=== PATIENT | female | born 1960 | race Caucasian/White ===

== ENCOUNTER 2019-01-25 18:40 | Emergency (ER) | payer OTHER, MEDICARE ==
[~2019-01-25] VITALS: Ht 170.2 cm; Wt 104.3 kg
[~2019-01-25 18:40] MED LIST: AUGMENTIN 875-1 EACH PO; LOSARTAN POTASS25 MG PO; METRONIDAZOLE500 MG PO; NITROFURANTOIN100 MG PO; ORENCIA125 MG/1 M SQ; VITAMIN D1000 UNI1 PO
--- OUTSIDE RECORDS SUMMARY | 2019-01-25 18:43 | XMS REPORT | Clinical Summary ---
Author Author [facility] Organization [facility] Address Unknown Phone Unavailable Care Team Providers Care Medical Scientific Officer Name Role Phone Zahra Sullivan MD PCP Allergies Comments Active Allergy Reactions Severity Noted Date Acetaminophen Shortness Of High 07/12/2016 Breath Moxifloxacin Shortness Of High 07/12/2016 Breath PER PT SHORTNESS OF BREATH WELL Penicillins Hives High 07/12/2016 Medications End Date Status Medication Sig Dispensed Refills Start Date Active abatacept (ORENCIA) 125 Inject under 0 mg/mL injection the skin. Active amoxicillin-pot TK 1 T PO BID 0 clavulanate (AUGMENTIN) 9 875-125 mg per tablet Active metroNIDAZOLE (FLAGYL) TK 1 T PO TID 0 500 MG tablet 9 05/28/2018 Discontinued predniSONE (DELTASONE) 5 1 mg tablet 7 05/28/2018 Discontinued buPROPion XL (WELLBUTRIN TK 1 T PO D 1 XL) 150 MG 24 hr tablet 7 05/28/2018 Discontinued celecoxib (CeleBREX) 100 TK 2 C PO IN 0 MG capsule THE MORNING 6 AND 1 C PO IN THE EVENING AFTER 1 WEEK INCREASE TO 2 C PO BID PRN 05/28/2018 Discontinued leflunomide (ARAVA) 10 MG 0 tablet 7 05/28/2018 Discontinued CIMZIA 400 mg/2 mL (200 0 07/11/ mg/mL x 2) syringe kit 7 05/28/2018 CLENPIQ 10 mg-3.5 gram Take 1 kit by 320 mL 0 -12 gram/160 mL solution mouth once 9 for 1 dose. As per box Active Problems Problem Noted Date Colitis Colon cancer screening Encounters Care Team Description Date Type Specialty Starr, Aubrey Lyone, MD 06/07/2018 Lab Lab Isabel Fontaine 06/05/2018 Telephone Gastroenterology Aubrey Clements MD Colon cancer screening (Primary Dx); Colitis 05/28/2018 Office Visit Gastroenterology Andrey Rodrigues MD 03/29/2018 Emergency Emergency Medicine Alanna Walls MD Other psoriasis; Other psoriatic arthropathy (HCC) 02/28/2018 Hospital Radiology Encounter Alanna Walls MD Other psoriasis (Primary Dx); Other psoriatic arthropathy (HCC) 02/28/2018 Transcribe Access Orders after 01/24/2018 Family History Medical History Relation Name Comments Pancreatic cancer Mother Relation Name Status Comments Father Mother Social History Date Tobacco Use Types Packs/Day Years Used Current Every Day Smoker 1 Smokeless Tobacco: Never Used Drinks/Week oz/Week Comments Alcohol Use Seldom Yes Sex Assigned at Date Recorded Not on file Industry Job Start Date Occupation Not on file Not on file Not on file Travel End Travel History Travel Start No recent travel history available. Last Filed Vital Signs Reading Time Taken Comments Vital Sign 149/84 05/28/2018 1:28 PM [employer] Blood Pressure 74 05/28/2018 1:28 PM [employer] Pulse 36.7 C (98 F) 05/28/2018 1:28 PM [employer] Temperature 16 03/29/2018 9:02 PM [employer] Respiratory Rate 98% 03/29/2018 9:02 PM [employer]EC[employer]IVE Oxygen Saturation - - Inhaled Oxygen Concentration 113 kg (250 lb) 05/28/2018 1:28 PM [employer]EC[employer]IVE Weight 170.2 cm (5' 7") 03/29/2018 8:16 PM [employer] EXECUTIVE Height 39.16 03/29/2018 8:16 PM [employer] EXECUTIVE Body Mass Index Plan of Treatment Health Maintenance Due Date Last Done Comments CERVICAL CANCER SCREENING 1983 BREAST CANCER SCREENING 01/12/2012 SHINGLES VACCINES (#1) 01/12/2012 INFLUENZA VACCINE 12/20/2018 COLONOSCOPY SCREENING 06/07/2021 06/07/2018 Procedures Comments Procedure Name Priority Date/Time Associated Diagnosis SURGICAL PATHOLOGY Routine 06/07/2018 REQUEST 12:03 PM [employer]IONAL [employer] EXECUTIVE XR HANDS 3 VW BILATERAL Routine 02/28/2018 Other psoriasis 11:10 AM CDT Other psoriatic arthropathy (HCC) after 01/24/2018 Results * Surgical pathology request (06/07/2018 12:03 PM [employer]IONAL ACCOUNT EXECUTIVE) [facility] DEPARTMENT OF PATHOLOGY AND GENOMIC MEDICINE Surgical See link below for PDF Lab [facility] DEPARTMENT pathology Report OF PATHOLOGY report AND GENOMIC MEDICINE Result status This is Final Report for [facility] DEPARTMENT [id number] OF PATHOLOGY AND GENOMIC MEDICINE Specimen Performing Organization Address City[facility] Phone Number [facility] DEPARTMENT OF [address] [place] [address] PATHOLOGY AND GENOMIC MEDICINE * XR Hands 3 Vw Bilateral (02/28/2018 11:10 AM CDT) Specimen Narrative Performed At EXAMINATION:XR HANDS 3 VW BILATERAL [facility] CLINICAL HISTORY:L40.8 Other psoriasis, L40.59 Other psoriatic arthropathy, L40.8 COMPARISON:None. IMPRESSION: All joint spaces are well-maintained. There is no fracture or dislocation. Mineralization is normal. There are no erosions. No foreign bodies or soft tissue abnormalities are detected. [facility]-[id number] Procedure Note Hm Interface, Radiology Results Incoming - 02/28/2018 12:18 PM CDT EXAMINATION: XR HANDS 3 VW BILATERAL CLINICAL HISTORY: L40.8 Other psoriasis, L40.59 Other psoriatic arthropathy, L40.8 COMPARISON: None. IMPRESSION: All joint spaces are well-maintained. There is no fracture or dislocation. Mineralization is normal. There are no erosions. No foreign bodies or soft tissue abnormalities are detected. [facility]-[id number] Performing Organization Address City[facility] Phone Number [facility] [address] [place] [address] after 01/24/2018 Insurance Type Payer Benefit Subscriber ID Effective Phone Address Plan / Dates Group HMO/PPO [facility] xxxxxxxxx 2016-P THCARE resent CHOICE/CHO ICE + Medicare MEDICARE MEDICARE xxxxxxxxxx 2016- [place]AN[place], PART A AND Present [place] Advance Directives For more information, please contact: [phone] Patient Manager Mechanical Explanation Type Date Recorded Advance Directives, Living Will and 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
--- OUTSIDE RECORDS SUMMARY | 2019-01-25 18:44 | XMS REPORT ---
Author Author Sandoval Campbell Organization [employer] Address Unknown Phone Unavailable Care Team Providers Care Hoist Cylinder Loader Name Role Phone Sandoval Campbell Unavailable Allergies, Adverse Reactions, Alerts Substance Reaction Event Type Vimovo Info Not Available Drug Allergy Rocephin Info Not Available Drug Allergy Avelox Info Not Available Drug Allergy Acetaminophen Info Not Available Drug Allergy Problems Problem Type Condition Code Onset Dates Condition Status Assessment Encounter for screening mammogram for malignant neoplasm of breast Z12.31 Active Assessment Encounter for screening for malignant neoplasm of colon Z12.11 Active Assessment Encounter for general adult medical examination with abnormal findings Z00.01 Active Assessment Essential (primary) hypertension I10 Active Problem Pain in unspecified joint M25.50 Active Problem Encounter for screening mammogram for malignant neoplasm of breast Z12.31 Active Problem Low back pain M54.5 Active Problem Encounter for screening for malignant neoplasm of colon Z12.11 Active Problem Essential (primary) hypertension I10 Active Problem Encounter for general adult medical examination with abnormal findings Z00.01 Active Problem Pain in left ankle and joints of left foot M25.572 Active Problem Sciatica, left side M54.32 Active Problem Effusion, right ankle M25.471 Active Problem Morbid (severe) obesity due to excess calories E66.01 Active Problem Hallux rigidus, left foot M20.22 Active Problem Rheumatoid arthritis, unspecified M06.9 Active Problem Pain in right toe(s) M79.674 Active Problem Pain in left toe(s) M79.675 Active Problem Other hammer toe(s) (acquired), right foot M20.41 Active Problem Other hammer toe(s) (acquired), left foot M20.42 Active Problem Shortness of breath R06.02 Active Problem Heart failure, unspecified I50.9 Active Problem Psoriasis, unspecified L40.9 Active Problem Arthropathic psoriasis, 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 Problem Xerosis cutis L85.3 Active Problem Rash and other nonspecific skin eruption R21 Active Problem Essential (primary) hypertension I10 Active Problem 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 Active Medications Medication Code System Code Instructions Start Date End Date Status Dosage Triamcinolone Acetonide [facility] 58667193630 0.5 % Externally Twice a day December 16, 2016 Active 1 application to affected area Remicade [facility] [id number] 100 mg Intravenous q 6 weeks Active 5mg/kg Lisinopril [facility] [id number] 10 MG Orally as directed Active 2 tabs in am and 1 tab in pmtablet Vitamin D [facility] [id number] 2000 UNIT Orally Once a day Active 1 tablet Vital Signs Date/Time: Mar 06, 2017 BMI 43.22 Index Weight 276 lbs Blood Pressure Systolic 140 mm Hg Respiratory Rate 16 /min Cardiac Monitoring Heart Rate 72 /min Temperature 98.0 F Blood Pressure Diastolic 80 mm Hg Results No Known Results Summary Purpose [employer] Submission
--- OUTSIDE RECORDS SUMMARY | 2019-01-25 18:44 | XMS REPORT | Continuity of Care Document ---
Author Author [employer] Organization [employer] Address Unknown Phone Unavailable Care Team Providers Care Pediatric Occupational Therapist Name Role Phone [employer] Unavailable Unavailable Problems Problem Status Onset Date Classification Date Reported Comments Source Heart failure, unspecified Active Problem 12/11/2018 [facility] Varicose veins of bilateral lower extremities with other complications Active Problem 12/11/2018 [facility] Essential (primary) hypertension Active Diagnosis 12/11/2018 [facility] Encounter for general adult medical examination with abnormal findings Active Diagnosis 12/11/2018 [facility] Encounter for screening for malignant neoplasm of colon Active Diagnosis 12/11/2018 [facility] Rash and other nonspecific skin eruption Active Problem 12/11/2018 [facility] Xerosis cutis Active Problem 12/11/2018 [facility] Encounter for screening mammogram for malignant neoplasm of breast Active Diagnosis 12/11/2018 [facility] Pain in unspecified joint Active Problem 12/11/2018 [facility] Rheumatoid arthritis, unspecified Active Problem 12/11/2018 [facility] Effusion, right ankle Active Problem 12/11/2018 [facility] Psoriasis, unspecified Active Problem 12/11/2018 [facility] Morbid (severe) obesity due to excess calories Active Problem 12/11/2018 [facility] Arthropathic psoriasis, unspecified Active Problem 12/11/2018 [facility] Low back pain Active Problem 12/11/2018 [facility] Shortness of breath Active Problem 12/11/2018 [facility] Other hammer toe(s) (acquired), right foot Active Problem 12/11/2018 [facility] Other hammer toe(s) (acquired), left foot Active Problem 12/11/2018 [facility] Sciatica, left side Active Problem 12/11/2018 [facility] Pain in right toe(s) Active Problem 12/11/2018 [facility] Pain in left toe(s) Active Problem 12/11/2018 [facility] Pain in left ankle and joints of left foot Active Problem 12/11/2018 [facility] Hallux rigidus, left foot Active Problem 12/11/2018 [facility] Medications Medication Details Route Status Patient Instructions Ordering Provider Order Date Source Cholecalciferol (Vitamin D3) (Vitamin D) 1,000 Unit Tablet, 1000 Unit Oral Daily Active 05/20/2018 [facility] Nitrofurantoin Macrocrystal (Nitrofurantoin) 100 Mg Capsule, 1 Tab Oral Twice A Day Active 05/20/2018 [facility] Remicade 5mg/kg Intravenous Active 100 mg Intravenous q 6 weeks [facility] 07/26/2017 [facility] Tramadol one tab orally Active 50 mg orally every 4-6 hours prn pain [facility] 07/26/2017 [facility] Losartan Potassium 1 tablet Orally Active 25 MG Orally Once a day [facility] 07/03/2017 [facility] Diflucan 1 tablet Orally Active 150 MG Orally daily [facility] 06/15/2017 [facility] Keflex 1 capsule Orally Active 500 MG Orally every 12 hrs [facility] 04/28/2017 [facility] Orencia as directed Intravenous Active 250 MG Intravenous [facility] 03/14/2017 [facility] Remicade 5mg/kg Intravenous Active 100 mg Intravenous q 6 weeks [facility] 03/14/2017 [facility] Remicade 5 mg/kg Intravenous Active 100 mg Intravenous q 6 weeks [facility] 02/17/2017 [facility] Hydrocortisone 1 application to affected area Externally Active 2.5 % Externally Twice a day [facility] 12/30/2016 [facility] Levaquin 1 tablet Orally Active 500 MG Orally Once a day [facility] 12/23/2016 [facility] Triamcinolone Acetonide 1 application to affected area Externally Active 0.5 % Externally Twice a day [facility] 12/16/2016 [facility] Lisinopril 2 tabs in am and 1 tab in pmtablet Orally Active 10 MG Orally as directed [facility] Above the knee Compression Stockings as directed NA Active 20- 30mmHg [place] [facility] Vitamin D 1 tablet Orally Active 2000 UNIT Orally Once a day [facility] Remicade 5mg/kg Intravenous Active 100 mg Intravenous q 6 weeks [facility] Triamcinolone Acetonide 1 application to affected area Externally Active 0.5 % Externally Twice a day [facility] Orencia as directed Intravenous Active 250 MG Intravenous [facility] Vitamin D 1 capsule Orally Active [address]46 UNIT Orally weekly [facility] Abatacept (Orencia) 125 Mg/1 Ml Disp.syrin Use As Directed Active [facility] Amoxicillin/Potassium Clav (Augmentin 875-125 Tablet) 1 Each Tablet Twice A Day Active [facility] Losartan Potassium 25 Mg Tablet Daily Active [facility] Metronidazole 500 Mg Tablet Three Times A Day Active [facility] Allergies, Adverse Reactions, Alerts Substance Category Reaction Severity Reaction type Status Date Reported Comments Source AVALOX Intermediate Allergy to Substance Active 03/17/2016 [facility] VIVALOL Intermediate Allergy to Substance Active 03/17/2016 [facility] Vimovo Adverse Reaction Info Not Available Adverse Reaction Active 03/06/2017 [facility] Rocephin Adverse Reaction Info Not Available Adverse Reaction Active 03/06/2017 [facility] Avelox Adverse Reaction Info Not Available Adverse Reaction Active 03/06/2017 [facility] Acetaminophen Adverse Reaction Info Not Available Adverse Reaction Active 03/06/2017 [facility] Remicade Adverse Reaction Info Not Available Adverse Reaction Active 03/13/2017 [facility] Cephalosporin Adverse Reaction Info Not Available Adverse Reaction Active 03/27/2017 [facility] Cephalosporins Unknown Allergy to Substance Active 05/20/2018 [facility] Prednisone Unknown Propensity to adverse reactions Active 05/20/2018 [facility] Naproxen Unknown Allergy to Substance Active 05/20/2018 [facility] Ceftriaxone Unknown Allergy to Substance Active 05/20/2018 [facility] Moxifloxacin Unknown Allergy to Substance Active 05/20/2018 [facility] Esomeprazole Unknown Allergy to Substance Active 05/20/2018 [facility] Immunizations No Data Provided for This Section Results Order Name Results Value Reference Range Date Interpretation Comments Source Blood leukocytes automated count (number/volume) 9.80 4.8 - 10.8 05/22/2018 [facility] Blood erythrocytes automated count (number/volume) 3.84 3.6 - 5.1 05/22/2018 [facility] Blood hemoglobin measurement (moles/volume) 12.6 12.0 - 16.0 05/22/2018 [facility] Automated blood hematocrit (volume fraction) 37.6 34.2 - 44.1 05/22/2018 [facility] Automated erythrocyte mean corpuscular volume 97.9 81 - 99 05/22/2018 [facility] Automated erythrocyte mean corpuscular hemoglobin (mass per erythrocyte) 32.8 28 - 32 05/22/2018 [facility] Automated erythrocyte mean corpuscular hemoglobin concentration measurement (mass/volume) 33.5 31 - 35 05/22/2018 [facility] RDW BldCo-Rto 14.1 11.7 - 14.4 05/22/2018 [facility] Automated blood platelet count (count/volume) 272 140 - 360 05/22/2018 [facility] Automated blood segmented neutrophil count as percentage of total leukocytes 65.7 38.7 - 80.0 05/22/2018 [facility] Automated blood lymphocyte count as percentage ot total leukocytes 21.1 18.0 - 39.1 05/22/2018 [facility] Automated blood monocyte count as percentage of total leukocytes 10.5 4.4 - 11.3 05/22/2018 [facility] Automated blood eosinophil count as percentage of total leukocytes 2.0 0.0 - 6.0 05/22/2018 [facility] Automated blood basophil count as percentage of total leukocytes 0.4 0.0 - 1.0 05/22/2018 [facility] IM GRANULOCYTES % 0.3 0.0 - 1.0 05/22/2018 [facility] Automated blood neutrophil count 6.4 2.1 - 6.9 05/22/2018 [facility] Blood lymphocytes count (number/volume) 2.1 1.0 - 3.2 05/22/2018 [facility] Blood monocytes automated count (number/volume) 1.0 0.2 - 0.8 05/22/2018 [facility] Automated blood eosinophil count 0.2 0.0 - 0.4 05/22/2018 [facility] Automated blood basophil count (count/volume) 0.0 0.0 - 0.1 05/22/2018 [facility] Absolute Immature Granulocyte (auto 0.03 0 - 0.1 05/22/2018 [facility] Serum or plasma sodium measurement (moles/volume) 139 136 - 145 05/22/2018 [facility] Serum or plasma potassium measurement (moles/volume) 4.1 3.5 - 5.1 05/22/2018 [facility] Serum or plasma chloride measurement (moles/volume) 109 98 - 107 05/22/2018 [facility] Serum or plasma carbon dioxide, total measurement (moles/volume) 23 22 - 29 05/22/2018 [facility] Serum or plasma anion gap 11.1 8 - 16 05/22/2018 [facility] Serum or plasma urea nitrogen measurement (mass/volume) 7 7 - 26 05/22/2018 [facility] Serum or plasma creatinine measurement (mass/volume) 0.64 0.57 - 1.11 05/22/2018 [facility] Serum or plasma urea nitrogen/creatinine mass ratio 11 6 - 25 05/22/2018 [facility] Estimated glomerular filtration rate (GFR) determination > 60 60 05/22/2018 [facility] Glucose measurement 102 74 - 118 05/22/2018 [facility] Serum or plasma calcium measurement (mass/volume) 8.5 8.4 - 10.2 05/22/2018 [facility] Serum or plasma magnesium measurement (mass/volume) 1.8 1.3 - 2.1 05/22/2018 [facility] Stool gastrointestinal hemoglobin detection NEGATIVE NEGATIVE 05/21/2018 [facility] Clostridium difficile A and B toxin assay NEGATIVE NEGATIVE 05/21/2018 [facility] Pathology Reports No Data Provided for This Section Diagnostic Reports No Data Provided for This Section Consultation Notes No Data Provided for This Section Discharge Summaries No Data Provided for This Section History and Physicals No Data Provided for This Section Vital Signs Vital Sign Value Date Comments Source Weight 274 07/26/2017 [facility] Systolic (mm Hg) 161 07/26/2017 [facility] Respitory Rate 16 07/26/2017 [facility] Heart Rate 75 07/26/2017 [facility] Temperature Oral (F) 98.0 F 07/26/2017 [facility] Diastolic (mm Hg) 92 07/26/2017 [facility] Weight 274 03/27/2017 [facility] Systolic (mm Hg) 175 03/27/2017 [facility] Respitory Rate 16 03/27/2017 [facility] Heart Rate 81 03/27/2017 [facility] Temperature Oral (F) 97.6 F 03/27/2017 [facility] Diastolic (mm Hg) 104 03/27/2017 [facility] Weight 274 03/14/2017 [facility] Systolic (mm Hg) 144 03/14/2017 [facility] Respitory Rate 16 03/14/2017 [facility] Heart Rate 78 03/14/2017 [facility] Temperature Oral (F) 96.7 F 03/14/2017 [facility] Diastolic (mm Hg) 80 03/14/2017 [facility] Weight 274 03/13/2017 [facility] Systolic (mm Hg) 134 03/13/2017 [facility] Respitory Rate 16 03/13/2017 [facility] Heart Rate 79 03/13/2017 [facility] Temperature Oral (F) 96.7 F 03/13/2017 [facility] Diastolic (mm Hg) 80 03/13/2017 [facility] Weight 276 03/06/2017 [facility] Systolic (mm Hg) 140 03/06/2017 [facility] Respitory Rate 16 03/06/2017 [facility] Heart Rate 72 03/06/2017 [facility] Temperature Oral (F) 98.0 F 03/06/2017 [facility] Diastolic (mm Hg) 80 03/06/2017 [facility] Weight 280 02/10/2017 [facility] Systolic (mm Hg) 146 02/10/2017 [facility] Respitory Rate 16 02/10/2017 [facility] Heart Rate 93 02/10/2017 [facility] Temperature Oral (F) 97.1 F 02/10/2017 [facility] Diastolic (mm Hg) 90 02/10/2017 [facility] Weight 276 02/02/2017 [facility] Systolic (mm Hg) 145 02/02/2017 [facility] Respitory Rate 0 02/02/2017 [facility] Heart Rate 82 02/02/2017 [facility] Temperature Oral (F) 0 F 02/02/2017 [facility] Diastolic (mm Hg) 85 02/02/2017 [facility] Encounters Location Location Details Encounter Type Encounter Number Reason For Visit Attending Provider ADM Date DC Date Status Source Discharged Inpatient [id number] ANISHA DUGAN MD 05/21/2018 05/22/2018 [facility] Procedures No Data Provided for This Section Assessment and Plan No Data Provided for This Section Plan of Care Plan of Care Date Source Discharge Date 05/22/18 1:58pm Disposition HOME, SELF-CARE Instructions/Education Provided Dehydration - Adult Prescriptions See Medication Section Additional Instructions/Education Follow up with PCP, DR. NABEEL OLEARY, IN ONE Week 05/22/2018 [facility] Social History Social History Date Source Smoking Status Start Date Stop Date Never Smoker 05/22/2018 [facility] Family History No Data Provided for This Section Advance Directives Order Name Results Value Date Source Advance Directives Advance Directives Directive Response Recorded Date/Time Does the patient have an advance directive? No 05/20/18 8:25pm If yes, is advance directive on file with [facility]? No 05/20/18 8:25pm If not on file with [facility] will patient provide a copy? No 05/20/18 8:25pm Do you have a Directive to Physician? No 05/20/18 6:05pm Do you have a Medical Power of Chocolate Maker? No 05/20/18 6:05pm Do you have an out of hospital Do Not Resuscitate Order? No 05/20/18 6:05pm Do you have any special needs we should be aware of? No 05/20/18 6:05pm Do you have a support person here with you today? Yes 05/20/18 6:05pm Did patient receive Notice of Privacy Practices? Yes 05/20/18 6:05pm Did patient receive patient rights and responsibilities? Yes 05/20/18 6:05pm 05/22/2018 [facility] Functional Status No Data Provided for This Section
--- OUTSIDE RECORDS SUMMARY | 2019-01-25 18:44 | XMS REPORT ---
Author Author Pat Farr [employer] Address Unknown Phone Unavailable Care Team Providers Care Foreman/Project Manager Name Role Phone Pat Farr CP Unavailable Allergies, Adverse Reactions, Alerts Substance Reaction Event Type Vimovo Info Not Available Drug Allergy Rocephin Info Not Available Drug Allergy Avelox Info Not Available Drug Allergy Acetaminophen Info Not Available Drug Allergy Problems Problem Type Condition Code Onset Dates Condition Status Assessment Low back pain M54.5 Active Assessment Morbid (severe) obesity due to excess calories E66.01 Active Assessment Effusion, right ankle M25.471 Active Assessment Rheumatoid arthritis, unspecified M06.9 Active Assessment Psoriasis, unspecified L40.9 Active Assessment Pain in unspecified joint M25.50 Active Assessment Arthropathic psoriasis, 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 Problem Pain in unspecified joint M25.50 [...] Date End Date Status Dosage Triamcinolone Acetonide [facility] 79726562470 0.5 % Externally Twice a day Active 1 application to affected area Vitamin D [facility] 76744561891 2000 UNIT Orally Once a day Active 1 tablet Vitamin D [facility] 77600960155 74451 UNIT Orally weekly Active 1 capsule Remicade [facility] 94263522457 100 mg Intravenous q 6 weeks July 26, 2017 Inactive 5mg/kg Lisinopril [facility] 39466823191 10 MG Orally bid prn Active 1 tablet Losartan Potassium [facility] 93917015158 25 MG Orally Once a day Jul 03, 2017 Active 1 tablet Orencia [facility] 53987696806 250 MG Intravenous Active as directed Tramadol [facility] 47598374917 50 mg orally every 4-6 hours prn pain July 26, 2017 Active one tab Vital Signs Date/Time: July 26, 2017 BMI 42.91 Index Weight 274 lbs Blood Pressure Systolic 161 mm Hg Respiratory Rate 16 /min Cardiac Monitoring Heart Rate 75 /min Temperature 98.0 F Blood Pressure Diastolic 92 mm Hg Results No Known Results Summary Purpose [employer] Submission
[2019-01-25] MEDS ORDERED: ONDANSETRON HCL 4 MG ORAL DISINTEGRATING TAB PO ONE ×2 (19:00→20:30)
[2019-01-25] MEDS ORDERED: TRAMADOL HCL 50 MG TAB PO ONE (19:00)
[2019-01-25] MEDS ORDERED: DIAZEPAM 5 MG TAB PO ONE (19:00)
[2019-01-25] MEDS ORDERED: ONDANSETRON HCL 4 MG ORAL DISINTEGRATING TAB ONE ×2 (19:10→20:23)
[2019-01-25] MEDS ORDERED: TRAMADOL HCL 50 MG TAB ONE (19:11)
[2019-01-25] MEDS ORDERED: DIAZEPAM INJ 5 MG/ML 2 ML IM ONE ×2 (19:15→20:30)
--- NOTE | 2019-01-25 20:17 | Diagnostic Imaging Report ---
EXAMINATION: CT of the abdomen and pelvis without contrast. TECHNIQUE: Helical CT images of the abdomen and pelvis were performed from the lung bases to the lesser trochanters. No intravenous contrast was given per renal stone protocol. Coronal and sagittal reformatted images were obtained.Dose modulation, iterative reconstruction, and/or weight based adjustment of the mA/kV was utilized to reduce the radiation dose to as low as reasonably achievable. COMPARISON: None. CLINICAL HISTORY:Left-sided flank pain DISCUSSION: ABSENCE OF INTRAVENOUS CONTRAST DECREASES SENSITIVITY FOR DETECTION OF FOCAL LESIONS AND VASCULAR PATHOLOGY. ABDOMEN/PELVIS: LOWER THORAX: Unremarkable. HEPATOBILIARY:No focal hepatic lesions. No biliary ductal dilation. Cholecystectomy. SPLEEN: No splenomegaly. PANCREAS: No focal masses or ductal dilatation. ADRENALS: No adrenal nodules. KIDNEYS/URETERS: No hydronephrosis, stones, or solid mass lesions. PELVIC ORGANS/BLADDER: Bladder is decompressed. Hysterectomy. PERITONEUM/RETROPERITONEUM: No free air or fluid. LYMPH NODES: No intra-abdominal,retroperitoneal, pelvic or inguinal lymphadenopathy. VESSELS: Limited evaluation. GI TRACT: No obstruction. Prior bariatric surgery. Scattered diverticulosis. BONES AND SOFT TISSUES: No bony destructive lesions. No soft tissue abnormalities. IMPRESSION: No acute CT finding. No renal calculi. Signed by: Dr. Melvin Bowie M.D. on 01/25/2019 8:14 PM
[2019-01-25] MEDS ORDERED: PROMETHAZINE HCL 25 MG TAB ONE (20:23)
[2019-01-25] MEDS ORDERED: PROMETHAZINE HCL 25 MG TAB PO ONE (22:00)
== END 2019-01-25 20:33 | disposition home or self-care (01) ==
LOC: FSED 18:40
DX: M54.5 Low back pain (principal); M54.6 Pain in thoracic spine; R10.11 Right upper quadrant pain; R10.12 Left upper quadrant pain; R11.0 Nausea; I10 Essential (primary) hypertension; L40.50 Arthropathic psoriasis, unspecified; Z98.84 Bariatric surgery status
CPT/HCPCS: 74176; 81003; 99283; J3360; Q0162